=== PATIENT | female | born 1965 ===

== ENCOUNTER 2017-08-08 15:08 | Emergency (ER) | payer SELFPAY ==
[2017-08-08 16:03] VITALS: RESP 18
--- NOTE | 2017-08-08 17:07 | ED PDOC ---
HPI: CCC, URI, Sore Throat Time Seen by Provider: 08/08/17 16:05 Chief Complaint (Nursing): Flu-like Symptoms Chief Complaint (Provider): Flu-like Symptoms History Per: Patient History/Exam Limitations: no limitations Onset/Duration Of Symptoms: Days (x5) Current Symptoms Are (Timing): Still Present Additional Complaint(s): Patient reports 5 days of fever with runny nose, cough, congestion, and body aches. Otherwise: (-) sore throat, (-) SOB, (-) chest pain, (-) N/V/D, (-) abdominal pain, (-) flank pain, (-) urinary symptoms, (-) recent travel, (-) sick contacts. PMD: Dr. Lawton Past Medical History Reviewed: Historical Data, Nursing Documentation, Vital Signs Vital Signs: Last Vital Signs Temp 98.3 F 08/08/17 17:51 Pulse 81 08/08/17 17:51 Resp 18 08/08/17 17:51 BP 133/78 08/08/17 17:51 Pulse Ox 99 08/08/17 17:51 - Family History Family History: States: Unknown Family Hx - Home Medications Home Medications: Ambulatory Orders Medication Instructions Recorded Guaifenesin 400 mg PO QID #20 tablet 08/08/17 Ibuprofen [Motrin Tab] 600 mg PO QID PRN #20 tab 08/08/17 - Allergies Allergies/Adverse Reactions: Allergies Allergy/AdvReac Type Severity Reaction Status Date / Time No Known Allergies Allergy Verified 10/19/16 08:59 Review of Systems ROS Statement: Except As Marked, All Systems Reviewed And Found Negative Constitutional: Positive for: Fever, Other (Body aches) ENT: Positive for: Nose Discharge, Nose Congestion. Negative for: Throat Pain Cardiovascular: Negative for: Chest Pain Respiratory: Positive for: Cough. Negative for: Shortness of Breath Gastrointestinal: Negative for: Nausea, Vomiting, Abdominal Pain, Diarrhea Genitourinary Female: Negative for: Dysuria, Frequency Physical Exam - Reviewed Nursing Documentation Reviewed: Yes Vital Signs Reviewed: Yes - Physical Exam Comments: GENERAL APPEARANCE: Patient is awake, alert, oriented x 3, in no acute distress. SKIN: Warm, dry; (-) cyanosis, (-) rash. EYES: (-) conjunctival pallor, (-) scleral icterus, (-) conjunctival hemorrhage. ENMT: Mucous membranes moist. TMs: (-) erythema. Airway patent: (-) stridor. Pharynx: (-) erythema, (-) exudate. NECK: (-) tenderness, (-) stiffness, (-) meningismus, (-) lymphadenopathy. CHEST AND RESPIRATORY: (-) accessory muscle use. Lungs: (-) rales, (-) rhonchi, (-) wheezes, (-) rub; breath sounds equal bilaterally. HEART AND CARDIOVASCULAR: (-) irregularity; (-) murmur, (-) gallop, (-) rub. ABDOMEN AND GI: Soft; (-) tenderness, (-) guarding; (-) organomegaly; (-) mass ; (-) CVA tenderness. EXTREMITIES: (-) deformity; (-) cellulitis, (-) lymphangitis; (-) subungual hemorrhage; (-) edema. NEURO AND PSYCH: Mental status as above; (-) focal findings. - ECG O2 Sat by Pulse Oximetry: 95 (RA) Pulse Ox Interpretation: Normal Medical Decision Making Medical Decision Making: Clinical Impression: Flu-like illness Time: 16:56 Initial Plan: --Chest X-Ray CXR : NAD, as read by KAYY. Based on history, exam and diagnostic results plan will be for outpatient follow up with PMD. Counseled patient regarding likely diagnosis of flu. Advised that symptoms have been ongoing for 5 days, and therefore patient is out of therapeutic window to give Tamiflu. Encouraged symptomatic treatment with intake of fluids, bed rest, Motrin and Tylenol. There is agreement to discharge plan. Advised patient to return to the emergency room at any time for any new or worsening symptoms. Patient states he fully agrees with and understands discharge instructions. States that he agrees with the plan and disposition. Verbalized and repeated discharge instructions and plan. I have given the patient opportunity to ask any additional questions. Scribe Attestation: Documented by Tricia Liang, acting as a scribe for Raquel Chao PA-C Provider Scribe Attestation: All medical record entries made by the Scribe were at my direction and personally dictated by me. I have reviewed the chart and agree that the record accurately reflects my personal performance of the history, physical exam, medical decision making, and the department course for this patient. I have also personally directed, reviewed, and agree with the discharge instructions and disposition. Disposition - Clinical Impression Clinical Impression: Influenza - Patient ED Disposition Is Patient to be Admitted: No Counseled Patient/Family Regarding: Diagnosis, Need For Followup, Rx Given - Disposition Disposition: Routine/Home Disposition Time: 17:30 Condition: STABLE Additional Instructions: Thank you for letting us take care of you today. You were treated for influenza. The emergency medical care you received today was directed at your acute symptoms. If you were prescribed any medication, please fill it and take as directed. It may take several days for your symptoms to resolve. Return to the Emergency Department if your symptoms worsen, do not improve, or if you have any other problems. Please contact your doctor in 2 days for re-evaluation and follow up. Bring any paperwork you were given at discharge with you along with any medications you are taking to your follow up visit. Our treatment cannot replace ongoing medical care by a primary care provider (PCP) outside of the emergency department. Thank you for allowing the [facility] team to be part of your care today. Prescriptions: Guaifenesin 400 mg PO QID #20 tablet Ibuprofen [Motrin Tab] 600 mg PO QID PRN #20 tab PRN Reason: Fever >100.4 F Instructions: Flu, Adult (DC) Forms: [employer] (Iranian), [facility] ED School/Work Excuse Print Language: KINYARWANDA - PA / DIVER HELPER / Resident Statement MD/DO has reviewed & agrees with the documentation as recorded.
[2017-08-08 17:51] VITALS: BP 133/78; PULSE 81; TEMP 98.3
--- NOTE | 2017-08-08 18:32 | RAD ---
HISTORY: cough COMPARISON: No prior. TECHNIQUE: Chest PA and lateral FINDINGS: LUNGS: No active pulmonary disease. PLEURA: No significant pleural effusion identified. No pneumothorax apparent. CARDIOVASCULAR: Normal. OSSEOUS STRUCTURES: No significant abnormalities. VISUALIZED UPPER ABDOMEN: Normal. OTHER FINDINGS: None. IMPRESSION: No acute cardiopulmonary disease appreciated.
[2017-08-08 20:09] VITALS: O2SAT 95
== END 2017-08-08 17:52 | disposition home or self-care (01) ==
LOC: H.ER 15:08
DX: J11.1 Influenza due to unidentified influenza virus with other respiratory manifestations (principal)